=== PATIENT | female | born 1995 | race Asian ===

== ENCOUNTER → 2018-07-18 01:33 | Emergency (ER) | payer OTHER ==
[~2018-07-18 01:33] MED LIST: Nicotine Inhaler* 10 MG AMP INH PRN
[2018-07-18 01:43] VITALS: BP 134/88
--- NOTE | 2018-07-18 02:36 | ED ---
Psychiatric Complaint - HPI Summary HPI Summary: This patient is a 22 year old F presenting to [facility] accompanied by friend with a chief complaint of depression that began prior to arrival. The patient rates the pain 2/10 in severity. Symptoms aggravated by nothing. Symptoms alleviated by nothing. Patient reports SI. Patient denies HI. - History Of Current Complaint Chief Complaint: EDMentalHealth Time Seen by Provider: 07/18/18 02:16 Hx Obtained From: Patient ?: No Onset/Duration: Sudden Onset, Lasting Hours, Still Present Timing: Constant Severity Initially: Mild Severity Currently: Mild Character: Depressed Aggravating Factor(s): Nothing Alleviating Factor(s): Nothing Has Suicidal: Reports: Thoughts Has Homicidal: Denies: Thoughts - Allergies/Home Medications Allergies/Adverse Reactions: Allergies Allergy/AdvReac Type Severity Reaction Status Date / Time MS Penicillins [PCN] Allergy Hives/Diff. Verified 06/17/17 13:02 Breathing/I tching Home Medications: Home Medications Fluoxetine HCl [Prozac] 40 mg PO DAILY 07/18/18 [History Confirmed 07/18/18] PMH/Surg Hx/FS Hx/Imm Hx Previously Healthy: No Endocrine/Hematology History: Denies: Hx Diabetes Cardiovascular History: Denies: Hx Hypertension Psychiatric History: Reports: Hx Depression - Surgical History Surgery Procedure, Year, and Place: None. Infectious Disease History: No Infectious Disease History: Denies: Traveled Outside the [place] in Last 30 Days - Family History Known Family History: Negative: Hypertension, Diabetes - Social History Occupation: Student Lives: Dormitory/Roommates Alcohol Use: Unknown Hx Substance Use: No Substance Use Type: Reports: None Hx Tobacco Use: No Smoking Status (MU): Never Smoked Tobacco Review of Systems Negative: Fever Psychological: Other - Positive SI. Negative HI All Other Systems Reviewed And Are Negative: Yes Physical Exam - Summary Physical Exam Summary: VITAL SIGNS: Reviewed. GENERAL: Patient is a well-developed and nourished female who is lying comfortable in the stretcher. Patient is not in any acute respiratory distress. HEAD AND FACE: No signs of trauma. No ecchymosis, hematomas or skull depressions. No sinus tenderness. EYES: PERRLA, EOMI x 2, No injected conjunctiva, no nystagmus. EARS: Hearing grossly intact. Ear canals and tympanic membranes are within normal limits. MOUTH: Oropharynx within normal limits. NECK: Supple, trachea is midline, no adenopathy, no JVD, no carotid bruit, no c- spine tenderness, neck with full ROM. CHEST: Symmetric, no tenderness at palpation LUNGS: Clear to auscultation bilaterally. No wheezing or crackles. CVS: Regular rate and rhythm, S1 and S2 present, no murmurs or gallops appreciated. ABDOMEN: Soft, non-tender. No signs of distention. No rebound no guarding, and no masses palpated. Bowel sounds are normal. EXTREMITIES: FROM in all major joints, no edema, no cyanosis or clubbing. NEURO: Alert and oriented x 3. No acute neurological deficits. Speech is normal and follows commands. SKIN: Dry and warm. 2 self-inflicted longitudinal lacerations over both forearms , superficial Triage Information Reviewed: Yes Vital Signs On Initial Exam: Initial Vitals Temp Pulse Resp BP Pulse Ox 99.3 F 82 15 134/88 99 07/18/18 01:37 07/18/18 01:37 07/18/18 01:37 07/18/18 01:37 07/18/18 01:37 Vital Signs Reviewed: Yes Diagnostics - Vital Signs Vital Signs Temp Pulse Resp BP Pulse Ox 07/18/18 01:37 99.3 F 82 15 134/88 99 - Laboratory Result Diagrams: 07/18/18 03:06 07/18/18 03:06 Lab Statement: Any lab studies that have been ordered have been reviewed, and results considered in the medical decision making process. Course/Dx - Course Course Of Treatment: This patient is a 22 year old F [facility] accompanied by friend with a chief complaint of depression that began prior to arrival. Physical Exam Findings: 2 self-inflicted longitudinal lacerations over both forearms, superficial. Bloodwork and UA obtained. In the ED course the patient was given nicotine inhaler. Patient will be signed out upon shift change pending MHE. The patient is agreeable with this plan. - Differential Dx/Clinical Impression Provider Diagnosis: Depression Discharge - Sign-Out/Discharge Documenting (check all that apply): Sign-Out Patient Signing out patient TO: Pierce Hernandez - Upon shift change pending MHE - Discharge Plan Condition: Stable Referrals: No Primary Care Phys,NOPCP [Primary Care Provider] - - Attestation Statements Document Initiated by Scribe: Yes Documenting Scribe: Vera Lau Provider For Whom Scribe is Documenting (Include Credential): Dr. Mukund Hernandez MD Scribe Attestation: I, Vera Lau, scribed for Dr. Mukund Hernandez MD on 07/18/18 at 0636. Status of Scribe Document: Ready
[2018-07-18 03:14] LABS: Hematocrit 35 % (35-47); Hemoglobin 11.5 g/dl (12.0-16.0); Mean Corpuscular HGB Conc 33 g/dl (31-36); Mean Corpuscular Hemoglobin 28 pg (27-31); Mean Corpuscular Volume 84 fL (80-97); Mean Platelet Volume 7.4 fL (7.4-10.4); Platelet Count 350 10^3/ul (150-450); Red Blood Count 4.14 10^6/ul (4.00-5.40); Red Cell Distribution Width 18 % (10.5-15)
[2018-07-18 03:20] LABS: Urine Appearance Turbid; Urine Blood Negative (Negative); Urine Color Yellow; Urine Ketones Negative (Negative); Urine Protein 1+(30 mg/dL) (Negative); Urine Red Blood Cell 3+(>10/hpf) (Absent); Urine Urobilinogen Negative (Negative); Urine White Blood Cell Absent (Absent)
[2018-07-18 03:35] LABS: ABS Basophils 0 10^3/ul (0-0.2); ABS Eosinophils 0.2 10^3/ul (0-0.6); ABS Monocytes 0.4 10^3/ul (0-0.8); ABS Neutrophils 2.3 10^3/ul (1.5-7.7); ABS Nucleated RBC 0 10^3/ul; Eosinophil % 4.6 %; Lymphocyte % 40.4 %; Nucleated Red Blood Cells % 0.1
[2018-07-18 03:41] LABS: EGFR Non-African American 118.3 (>60)
--- NOTE | 2018-07-18 07:02 | ED ---
Progress - Progress Note Progress Note: 07/18/2018 07:00 hrs - Receiving patient sign out at the change of shift from Dr. Mukund Hernandez MD due to a pending MHE The pt will be discharged by Dr. Aggarwal with a final Dx of Depression. - Consult/PCP Time Called: 01:37 Course/Dx - Course Course Of Treatment: Ms. De Jesus was seen on a previous shift and medically cleared. She met with Dr. Aggarwal who felt that she was safe for D/C at this time.. She has an appointment at 1500 today with mental health at [place]. - Diagnoses Provider Diagnoses: Depression Discharge - Sign-Out/Discharge Documenting (check all that apply): Patient Departure - Discharge Plan Condition: Stable Disposition: HOME Referrals: [facility] - Bhargav GORDON [Medical Doctor] - Additional Instructions: Return to ED for any new or worsening symptoms - Billing Disposition and Condition Condition: STABLE Disposition: Home - Attestation Statements Document Initiated by Scribe: Yes Documenting Scribe: Marianela Avalos Provider For Whom Zacarias is Documenting (Include Credential): Dr. Pierce Hernandez MD Scribe Attestation: Marianela Chery , scribed for Dr. Pierce Hernandez MD on 07/18/18 at 1516. Scribe Documentation Reviewed: Yes Provider Attestation: The documentation as recorded by the Marianela bach accurately reflects the service I personally performed and the decisions made by me, Dr. Pierce Hernandez MD Status of Scribe Document: Viewed
== END | disposition home or self-care (01) ==
LOC: ED 01:33
DX: F32.9 Major depressive disorder, single episode, unspecified (principal); R45.851 Suicidal ideations; S51.812A Laceration without foreign body of left forearm, initial encounter; S51.811A Laceration without foreign body of right forearm, initial encounter; Y33.XXXA Other specified events, undetermined intent, initial encounter; Y92.9 Unspecified place or not applicable; Z88.0 Allergy status to penicillin
CPT/HCPCS: 36415; 80053; 80307; 80320; 80329; 81003; 81015; 84443; 84702; 85025; 87086; 99284; G0480

== ENCOUNTER 2018-07-18 16:33 | Inpatient (IN) | payer OTHER ==
--- NOTE | 2018-07-18 16:46 | ED ---
Psychiatric Complaint - HPI Summary HPI Summary: This patient is a 22 year old F presenting to [facility] with a chief complaint of suicidal ideations since earlier today. She was seen at [facility] last night for cutting her arms. She was medically cleared and discharged. However, when she saw her therapist today, her therapist sent her back because she was having suicidal ideations. She has verbalized plans to jump off a bridge. She has been medically and psychiatrically cleared. - History Of Current Complaint Time Seen by Provider: 07/18/18 16:36 Hx Obtained From: Patient Timing: Constant Has Suicidal: Reports: Thoughts, With A Plan - Allergies/Home Medications Allergies/Adverse Reactions: Allergies Allergy/AdvReac Type Severity Reaction Status Date / Time Penicillins Allergy Hives/Diff. Verified 07/18/18 17:11 Breathing/I tching PMH/Surg Hx/FS Hx/Imm Hx Endocrine/Hematology History: Denies: Hx Diabetes Cardiovascular History: Denies: Hx Hypertension Psychiatric History: Reports: Hx Anxiety, Hx Depression - Surgical History Surgery Procedure, Year, and Place: None. - Family History Known Family History: Negative: Hypertension, Diabetes - Social History Occupation: Student Alcohol Use: Unknown Hx Substance Use: No Substance Use Type: Reports: None Hx Tobacco Use: No Smoking Status (MU): Never Smoked Tobacco Review of Systems Negative: Fever Positive: Other - Suicidal ideations with a plan All Other Systems Reviewed And Are Negative: Yes Physical Exam - Summary Physical Exam Summary: VITAL SIGNS: Reviewed. GENERAL: Patient is a well-developed and nourished FEMALE who is lying comfortable in the stretcher. Patient is not in any acute respiratory distress. HEAD AND FACE: No signs of trauma. No ecchymosis, hematomas or skull depressions. No sinus tenderness. EYES: PERRLA, EOMI x 2, No injected conjunctiva, no nystagmus. EARS: Hearing grossly intact. Ear canals and tympanic membranes are within normal limits. MOUTH: Oropharynx within normal limits. NECK: Supple, trachea is midline, no adenopathy, no JVD, no carotid bruit, no c- spine tenderness, neck with full ROM. CHEST: Symmetric, no tenderness at palpation LUNGS: Clear to auscultation bilaterally. No wheezing or crackles. CVS: Regular rate and rhythm, S1 and S2 present, no murmurs or gallops appreciated. ABDOMEN: Soft, non-tender. No signs of distention. No rebound no guarding, and no masses palpated. Bowel sounds are normal. EXTREMITIES: FROM in all major joints, no edema, no cyanosis or clubbing. NEURO: Alert and oriented x 3. No acute neurological deficits. Speech is normal and follows commands. SKIN: Dry and warm PSYCH: Depressed, quiet. Has suicidal thoughts with a plan. No homicidal thoughts or plan. No signs of psychosis or pressure speech. No tangential speech. Triage Information Reviewed: Yes Vital Signs On Initial Exam: Initial Vitals Temp Pulse Resp BP Pulse Ox 98.4 F 68 14 121/86 100 07/18/18 17:07 07/18/18 17:07 07/18/18 17:07 07/18/18 17:07 07/18/18 17:07 Vital Signs Reviewed: Yes Diagnostics - Laboratory Result Diagrams: 07/18/18 17:02 07/18/18 17:02 Lab Statement: Any lab studies that have been ordered have been reviewed, and results considered in the medical decision making process. Course/Dx - Course Assessment/Plan: This patient is a 22 year old F presenting to [facility] with a chief complaint of suicidal ideations since earlier today. She was seen at [facility] last night for cutting her arms. She was medically cleared and discharged. However, when she saw her therapist today, her therapist sent her back because she was having suicidal ideations. She has verbalized plans to jump off a bridge. She has been medically and psychiatrically cleared. Blood work w/o a significant abnormality. She is medically cleared. She is awaiting for a MHE. Patient is hemodynamically stable and A+O x 3. Following the MHE, the patient was voluntarily admitted to [facility] Fournier [facility] with a dx of depressive disorder NOS. - Differential Dx/Clinical Impression Differential Diagnosis/HQI/PQRI: Positive: Anxiety, Depression, Suicidal Ideation Provider Diagnosis: Depressive disorder Discharge - Sign-Out/Discharge Documenting (check all that apply): Patient Departure - Admit to An[facility] Fournier MD - Discharge Plan Condition: Stable Disposition: ADMITTED TO [facility] - Billing Disposition and Condition Condition: STABLE Disposition: Admitted to [facility] - Attestation Statements Document Initiated by Scribe: Yes Documenting Scribe: Satya Ford Provider For Whom Scribe is Documenting (Include Credential): Kumar Arthur MD Scribe Attestation: Satya Chery, scribed for Kumar Arthur MD on 07/18/18 at 2104. Scribe Documentation Reviewed: Yes Provider Attestation: The documentation as recorded by the scribeSatya accurately reflects the service I personally performed and the decisions made by me, Kumar Arthur MD Status of Scribe Document: Viewed
[2018-07-18 17:16] LABS: Urine Appearance Cloudy; Urine Blood 1+ (Negative); Urine Color Yellow; Urine Ketones Negative (Negative); Urine Protein Negative (Negative); Urine Red Blood Cell 1+(3-5/hpf) (Absent); Urine Specific Gravity 1.023 (1.010-1.030); Urine Urobilinogen Negative (Negative); Urine White Blood Cell Absent (Absent)
[2018-07-18 17:24] LABS: ABS Basophils 0.1 10^3/ul (0-0.2); ABS Eosinophils 0.4 10^3/ul (0-0.6); ABS Lymphocytes 1.7 10^3/ul (1.0-4.8); ABS Monocytes 0.3 10^3/ul (0-0.8); ABS Neutrophils 1.8 10^3/ul (1.5-7.7); ABS Nucleated RBC 0 10^3/ul; Hematocrit 36 % (35-47); Hemoglobin 12.2 g/dl (12.0-16.0); Lymphocyte % 40.7 %; Mean Corpuscular HGB Conc 34 g/dl (31-36); Mean Corpuscular Hemoglobin 28 pg (27-31); Mean Corpuscular Volume 84 fL (80-97); Mean Platelet Volume 7.7 fL (7.4-10.4); Nucleated Red Blood Cells % 0.2; Platelet Count 358 10^3/ul (150-450); Red Blood Count 4.34 10^6/ul (4.00-5.40); Red Cell Distribution Width 18 % (10.5-15); White Blood Count 4.2 10^3/ul (3.5-10.8)
[2018-07-18 19:02] LABS: EGFR Non-African American 118.3 (>60)
[2018-07-19] MEDS ORDERED: Al Hydrox/Mg Hydrox/Simet LIQ* 30 ML UDC PO PRN (16:24)
[2018-07-19] MEDS ORDERED: Albuterol HFA INHALER* 8 gm MDI INH PRN (16:25)
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
[2018-07-20] MEDS: Acetaminophen TAB* 325 MG PO PRN ×2 (01:00→08:08)
[2018-07-20] MEDS: Vitamin THERAPEUTIC TAB PO SCH (08:08)
[2018-07-20] MEDS: FLUoxetine CAP* 20 MG PO SCH (08:08)
[2018-07-21] MEDS: FLUoxetine CAP* 20 MG PO SCH (07:42)
[2018-07-21] MEDS: Vitamin THERAPEUTIC TAB PO SCH (07:42)
[2018-07-21] MEDS: [UNRECOGNIZED DRUG - OTHER] PO SCH (07:42)
--- NOTE | 2018-07-21 11:49 | PN ---
[facility]: Group Therapy Note - Service Type Service Type: [id number] Group Psychotherapy - Cognitive Behavioral Group Therapy ( CBT):Patient was attentive and participatory in CBT programming this morning, and remained in good behavioral control. Patient expressed positive insights regarding relevant treatment interventions and goals.
[2018-07-21] MEDS ORDERED: FLUoxetine CAP* 20 MG PO ONE (13:26)
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
--- NOTE | 2018-07-21 14:51 | CONS ---
PSYCHOLOGICAL REPORT: DATE OF CONSULT: 07/21/18 REASON FOR REFERRAL: Rehana was referred for personality testing secondary to concerns regarding possible lethality as well as characterological vulnerabilities consistent with borderline personality disorder. Rehana has historical difficulties with bulimia nervosa characterized by binging and purging. TEST ADMINISTERED: Rehana completed the [place] Multiphasic Personality Inventory- 2 (MMPI-2), and was given feedback in individual conversation regarding testing results. 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 She acknowledges having engaged in self-mutilation prior to her hospitalization this past Saturday evening and called the crisis intervention people at [employer]. She was subsequently hospitalized here and has been compliant with unit routine and recommended treatment. Rehana had endorsed historical difficulties with binging and purging as well as some food restriction at times. She was discussing with her outpatient therapist at [facility] changes in energy levels, citing how she had been feeling more energy of late secondary to consuming more calories. She seemed to have good insight regarding historical difficulties with self-image and currently simply endorses volume of stress as being difficult to manage, citing having taken 20 credit hours of classes this semester coupled with acute difficulties consistent with taking care of responsibilities during finals week and preparing to return home to [facility] for the holidays. She continues to express apprehension about discharge, describing how she needs to make arrangements to get bus tickets down to [facility] in order to catch the international flight back home. Rehana describes having called crisis managers at [employer] to let her professors know and ask for either extensions or incompletes regarding course work. BEHAVIORAL OBSERVATIONS: Rehana currently presents with good affect that is euthymic with conversation. She seems to have regained a sense of perspective and indeed was able to laugh off how a peer had scribbled on some very intricate coloring projects that she had been engaged in over the weekend. She spontaneously describes positive future orientation, describing her hopes of being able to remain in the country to pursue either graduate program or to find employment. 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 She described being hopeful of finding work in [facility] or perhaps a graduate program upon completion at [employer]. TEST RESULTS: Rehana provides elevated profile on this administration of the MMPI-2 having very profound elevations occurring on emotional duress scales to the point of attaining T scores between 95 and 110. Subsequently, she elevates all the clinical scales save the masculine-feminine scale. She endorses significant elevations on both the psychopathic deviate and hypomania scales, which is often consistent with college students. Her over endorsement of pathology generally leads to a cautious interpretation of clinical results with discussion with Rehana addressing concerns regarding possible hypomanic type experience secondary to her elevation here. Although Rehana endorses some periods of increased energy, she was unconvincing that her symptoms meet clinical standards for diagnostic purposes. Her symptoms do not impress as meeting criteria for hypomania as she denies any grandiosity or psychotic range disturbance occurring within the context of mood lability. Her recent cutting as well as historical difficulties with binging and purging may be better considered under borderline personality traits as she impresses as having some difficulties in tolerating negative mood states. Concerns regarding lethality are either minimal or moderate as she only elevates the depression scale to a T score of 75. IMPRESSION AND RECOMMENDATIONS: Rehana's primary difficulties impress as being expressed in eating disordered behaviors. Her cutting impresses as less characteristic and rather delicate nature. Rehana describes having benefited from her experience thus far at [facility], but is asking for discharge in order to attend academic responsibilities and to get ready to return back home for the holidays. She has historically been compliant with outpatient care as she continues to engage positively and develop good rapport with providers while here. Concerns regarding lethality appeared to be greatly diminished acutely, although there are enduring characteristics of concern. Rehana impresses as likely to comply with recommended outpatient treatment both in terms of compliance with medications as well as attendance to supportive counseling. Diagnostic impressions support major depressive disorder, recurrent , severe without psychosis as well as bulimia nervosa characterized by binging and purging. Continuing treatment should rule out borderline personality characteristics. [id number]/[facility] #: [id number] MIRTHA
[2018-07-21] MEDS: Bacitracin OINTMENT* 0.5% 0.5 oz TUBE TOPICAL SCH (21:59)
[2018-07-22 08:56] VITALS: BP 114/64
[2018-07-22] MEDS ORDERED: FLUoxetine CAP* 20 MG PO SCH (09:00)
[2018-07-22] MEDS: Vitamin THERAPEUTIC TAB PO SCH (09:13)
[2018-07-22] MEDS: [UNRECOGNIZED DRUG - OTHER] PO SCH (09:14)
[2018-07-22] MEDS: Bacitracin OINTMENT* 0.5% 0.5 oz TUBE TOPICAL SCH (09:15)
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
== END 2018-07-22 12:30 | disposition home or self-care (01) | DRG 885 ==
LOC: ED 16:33 → BSU 19:52
PROVIDERS: ADMIT Psychiatry & Neurology Psychiatry; ATTEND Psychiatry & Neurology Psychiatry
DX: F33.2 Major depressive disorder, recurrent severe without psychotic features (principal); F50.2 Bulimia nervosa; R45.851 Suicidal ideations; F41.9 Anxiety disorder, unspecified; J45.909 Unspecified asthma, uncomplicated; F12.90 Cannabis use, unspecified, uncomplicated; Z79.3 Long term (current) use of hormonal contraceptives; Z79.899 Other long term (current) drug therapy; Z72.89 Other problems related to lifestyle; Z72.0 Tobacco use
CPT/HCPCS: 36415; 80053; 80061; 80307; 80320; 80329; 81003; 83036; 84443; 85025; 90853; 96102; 99222; 99232; 99284; A9270-GY; G0480